=== PATIENT | male | born 1965 | race African-American/Black ===

== ENCOUNTER 2017-10-15 15:36 | Inpatient (IN) | payer OTHER ==
[2017-10-15 17:32] VITALS: BMI 32.2
--- NOTE | 2017-10-15 20:05 | HP ---
CIWA Score - CIWA Score Nausea/Vomitin Muscle Tremors: 4-Moderate,w/Arms Extend Anxiety: 3 Agitation: 4-Moderately Restless Paroxysmal Sweats: 1-Minimal Palms Moist Orientation: 1-Uncertain about Date (no distress) Tacttile Disturbances: 0-None Auditory Disturbances: 0-None Visual Disturbances: 1-Very Mild Sensitivity Headache: 0-None Present CIWA-Ar Total Score: 17 Admission ROS S - HPI Chief Complaint: " i don't feel good" alcohol withdrawal symptoms Allergies/Adverse Reactions: Allergies Allergy/AdvReac Type Severity Reaction Status Date / Time No Known Drug Allergies Allergy Verified 10/15/17 17:16 NKDA Allergy Uncoded 10/15/17 17:16 History of Present Illness: 52 yo male with of marijuana, crack /cocaine dependence is here seeking detox, c /o of withdrawal symptoms, reports relapsed three weeks ago. Last detox at [facility] seven months ago. PMHX: Spinal Stenosis, herniated disc, HTN ( non-compliant with meds). Denies suicidal / homicidal ideation. Denies any problems with law. Denies hx of seizures or blackouts. Longest period of sobriety five years. Exam Limitations: No Limitations - Ebola screening Have you traveled outside of the country in the last 21 days: No Have you had contact with anyone from an Ebola affected area: No Have you been sick,other than usual withdrawal symptoms: No Do you have a fever: No - Review of Systems Constitutional: Chills, Diaphoresis, Unintentional Wgt. Loss EENT: reports: No Symptoms Reported Respiratory: reports: No Symptoms reported Cardiac: reports: No Symptoms Reported GI: reports: Diarrhea, Nausea, Poor Appetite, Vomiting, Abdominal cramping : reports: No Symptoms Reported Musculoskeletal: reports: Back Pain, Joint Pain Integumentary: reports: No Symptoms Reported Neuro: reports: Dizziness Endocrine: reports: Excessive Sweating, Increased Thirst Hematology: reports: No Symptoms Reported Psychiatric: reports: Orientated x3, Anxious Other Systems: Reviewed and Negative Patient History - Patient Medical History Hx Anemia: No Hx Asthma: No Hx Chronic Obstructive Pulmonary Disease (COPD): No Hx Cardiac Disorders: No (CHEST PAIN 09/29/14--[facility]--CLEARED ANXIETY) Hx Hypertension: Yes (on meds) Hx Hypercholesterolemia: No Hx Pacemaker: No HX Cerebrovascular Accident: No Hx Seizures: No Hx Dementia: No Hx Diabetes: No Hx Gastrointestinal Disorders: No Hx Liver Disease: No Hx Genitourinary Disorders: No Hx Sexually Transmitted Disorders: No Hx Renal Disease (ESRD): No Hx Thyroid Disease: No Hx Human Immunodeficiency Virus (HIV): No (NEGATIVE HX) Hx Hepatitis C: No Hx Depression: Yes Hx Suicide Attempt: No (DENIES) Hx Bipolar Disorder: No Hx Schizophrenia: No - Patient Surgical History Past Surgical History: No Hx Neurologic Surgery: No Hx Cataract Extraction: No Hx Cardiac Surgery: No Hx Lung Surgery: No Hx Breast Surgery: No Hx Breast Biopsy: No Hx Abdominal Surgery: No Hx Appendectomy: No Hx Cholecystectomy: No Hx Genitourinary Surgery: No Hx Section: No Hx Orthopedic Surgery: No Anesthesia Reaction: No - PPD History Previous Implant?: Yes Documented Results: Negative w/proof Date: 10/02/14 PPD to be Administered?: Yes - Smoking Cessation Smoking history: Former smoker Have you smoked in the past 12 months: No If you are a former smoker, when did you quit?: 10yrs ago Hx Chewing Tobacco Use: No Initiated information on smoking cessation: No - Substance & Tx. History Hx Alcohol Use: Yes Hx Substance Use: Yes Substance Use Type: Alcohol, Cocaine Hx Substance Use Treatment: Yes (Last detox at [facility] seven months ago.) - Substances Abused Alcohol Route: Smoking Frequency: Daily Amount used: LIQUOR- 5 PINTS, BEER- 2 SIX PACK Age of first use: 19 Date of Last Use: 10/15/17 Crack Route: Smoking Frequency: Daily Amount used: $500 Age of first use: 20 Date of Last Use: 10/15/17 Family Disease History - Family Disease History Family Disease History: Diabetes: Mother (HTN), Sister, Other: Mother Admission Physical Exam S - Vital Signs Vital Signs: Vital Signs - 24 hr 10/15/17 16:53 Temperature 97.5 F L Pulse Rate 107 H Respiratory 20 Rate Blood Pressure 153/99 - Physical General Appearance: Yes: Disheveled, Mild Distress, Alcohol on Breath, Obese, Tremorous, Sweating, Anxious, Other (malodorous) HEENTM: Yes: EOMI, Hearing grossly Normal, Normal ENT Inspection, Normocephalic , Normal Voice, PRATIBHA, Pharynx Normal, Tm's normal Respiratory: Yes: Chest Non-Tender, Lungs Clear, Normal Breath Sounds, No Respiratory Distress, No Accessory Muscle Use Neck: Yes: Within Normal Limits Breast: Yes: Breast Exam Deferred Cardiology: Yes: Regular Rhythm, Regular Rate Abdominal: Yes: Normal Bowel Sounds, Non Tender, Soft, Protuberent Back: Yes: Normal Inspection Musculoskeletal: Yes: full range of Motion, Gait Steady, Pelvis Stable, Back pain Extremities: Yes: Normal Capillary Refill, Normal Inspection, Normal Range of Motion, Non-Tender Neurological: Yes: peanut roaster II-XII NML intact, Fully Oriented, Alert, Motor Strength 5/5, Depressed Affect Integumentary: Yes: Normal Color, Warm, Diaphoresis Lymphatic: Yes: Within Normal Limits - Diagnostic (1) Alcohol dependence with withdrawal Current Visit: Yes Status: Acute Qualifiers: Complication of substance-induced condition: uncomplicated Qualified Code(s ): F10.230 - Alcohol dependence with withdrawal, uncomplicated (2) Elevated blood pressure reading with diagnosis of hypertension Current Visit: Yes Status: Acute (3) Chronic back pain Current Visit: Yes Status: Chronic Qualifiers: Back pain location: thoracic back pain Back pain laterality: bilateral Qualified Code(s): M54.6 - Pain in thoracic spine; G89.29 - Other chronic pain (4) Cocaine dependence Current Visit: Yes Status: Acute Qualifiers: Substance use status: uncomplicated Qualified Code(s): F14.20 - Cocaine dependence, uncomplicated (5) Hypertension Current Visit: Yes Status: Chronic Qualifiers: Hypertension type: essential hypertension Qualified Code(s): I10 - Essential (primary) hypertension (6) Marijuana abuse Current Visit: Yes Status: Suspected (7) Obese Current Visit: Yes Status: Chronic Qualifiers: Obesity type: unspecified obesity type Obesity classification: adult class 1 (BMI 30 - 34.9) Serious obesity comorbidity presence: unspecified whether serious comorbidity present Cleared for Admission S - Detox or Rehab [facility] Level of Care: Medically Managed Detox Regimen/Protocol: Librium S Breath Alcohol Content Breath Alcohol Content: 0 Urine Drug Screen - Results Drug Screen Negative: No Urine Drug Screen Results: JESUS-Cocaine
[2017-10-15] MEDS ORDERED: cloNIDine HCL 0.1 MG TABLET PO ONE (20:08)
[2017-10-15] MEDS ORDERED: ONDANSETRON *ODT* 4 MG TABLET SL PRN (20:08)
[2017-10-15] MEDS ORDERED: LOPERAMIDE HCL 2 MG CAPSULE PO PRN (20:11)
[2017-10-15] MEDS ORDERED: ACETAMINOPHEN 325 MG TABLET (FP) PO PRN (20:11)
[2017-10-15] MEDS ORDERED: IBUPROFEN 400 MG TABLET (FP) PO PRN ×2 (20:11→20:33)
[2017-10-15] MEDS ORDERED: guaiFENesin/D-METHORPHAN HB 10 ML UNIT-DOSE CUPS PO PRN (20:11)
[2017-10-15] MEDS ORDERED: MAGNESIUM CITRATE 300 ML BOTTLE PO PRN (20:11)
[2017-10-15] MEDS ORDERED: MENTHOL/PHENOL 1 EACH UD MM PRN (20:11)
[2017-10-15] MEDS ORDERED: chlordiazePOXIDE HCL 25 MG CAPSULE PO ONE (20:11)
[2017-10-15] MEDS ORDERED: chlordiazePOXIDE HCL 25 MG CAPSULE PO PRN (20:11)
[2017-10-15] MEDS ORDERED: MAGNESIUM HYDROX 2400MG/30ML ORAL SUSPENSION 30 ML CUP PO PRN (20:11)
[2017-10-15] MEDS ORDERED: P-EPHED 60MG/TRIPROLIDI 2.5MG TABLET PO PRN (20:11)
[2017-10-15] MEDS ORDERED: MAG HYDROX/AL HYDROX/SIMETH 30 ML UNIT-DOSE CUP PO PRN (20:11)
[2017-10-15] MEDS: GABAPENTIN 300 MG CAPSULE (FP) PO SCH (21:00)
[2017-10-15] MEDS: THIAMINE HCL 100 MG TABLET (FP) PO SCH (21:00)
[2017-10-15] MEDS: CYCLOBENZAPRINE HCL 5 MG TABLET PO SCH (21:01)
[2017-10-15] MEDS ORDERED: MELATONIN 5 MG TABLETS PO PRN (22:00)
[2017-10-15] MEDS: LIDOCAINE PATCH REMOVAL MC SCH (22:21)
[2017-10-15] MEDS: chlordiazePOXIDE HCL 25 MG CAPSULE PO SCH (22:22)
[2017-10-15 23:26] LABS: URINE APPEARANCE CLEAR; URINE BILIRUBIN NEGATIVE (<2.0 mg/dL); URINE COLOR STRAW; URINE GLUCOSE (UA) NEGATIVE (NEGATIVE); URINE KETONE NEGATIVE (NEGATIVE); URINE LEUK ESTERASE NEGATIVE (NEGATIVE); URINE NITRITE NEGATIVE (NEGATIVE); URINE PROTEIN NEGATIVE (NEGATIVE); URINE UROBILINOGEN NEGATIVE mg/dL (0.2-1.0)
[2017-10-15 23:29] LABS: EPI CELLS RARE /HPF (FEW)
[2017-10-16] MEDS: chlordiazePOXIDE HCL 25 MG CAPSULE PO SCH ×4 (05:45→22:09)
[2017-10-16] MEDS: CYCLOBENZAPRINE HCL 5 MG TABLET PO SCH ×3 (05:45→22:09)
[2017-10-16] MEDS: GABAPENTIN 300 MG CAPSULE (FP) PO SCH ×3 (05:45→22:09)
[2017-10-16] MEDS ORDERED: PATIENT'S OWN MEDICATION (NON-FORMULARY) (Amlodipine Besylate/Benazepril [Lotrel 5-20 Mg C PO SCH (10:00)
[2017-10-16 10:20] LABS: HEMATOCRIT 38.3 % (35.4-49); HEMOGLOBIN 12.8 GM/dL (11.7-16.9); MCH 30.6 pg (25.7-33.7); MCHC 33.4 g/dl (32.0-35.9); MEAN CELL VOLUME 91.6 fl (80-96); PLATELET COUNT 291 K/MM3 (134-434); RBC 4.19 M/mm3 (4.00-5.60); RDW 12.2 % (11.9-15.9); WHITE BLOOD COUNT 7.4 K/mm3 (4.0-10.0)
[2017-10-16] MEDS: PRENATAL VITAMINS W/ FOLIC ACID TABLET (FP) PO SCH (10:25)
[2017-10-16] MEDS: HYDROCHLOROTHIAZIDE 25 MG TABLET (FP) PO SCH (10:25)
[2017-10-16] MEDS: LISINOPRIL 20 MG TABLET (FP) PO SCH (10:26)
[2017-10-16] MEDS: amLODIPine BESYLATE 5 MG TABLET (FP) PO SCH (10:26)
[2017-10-16] MEDS: LIDOCAINE 5% TOPICAL PATCH TP SCH (10:26)
[2017-10-16 11:37] LABS: CHLORIDE 106 mmol/L (98-107); POTASSIUM 3.8 mmol/L (3.5-5.1); SODIUM 143 mmol/L (136-145)
[2017-10-16 11:58] LABS: ALBUMIN 3.5 g/dl (3.4-5.0); ALK PHOS 83 U/L (45-117); ANION GAP 9 MMOL/L (8-16); BILIRUBIN,TOTAL 0.8 mg/dL (0.2-1.0); BLOOD UREA NITROGEN 22 mg/dL (7-18); CALCIUM 8.7 mg/dL (8.5-10.1); CO2 28 mmol/L (21-32); CREATININE 1.1 mg/dL (0.7-1.3); GLUCOSE,RANDOM 94 mg/dL (74-106); SGOT/AST 58 U/L (15-37); SGPT/ALT 54 U/L (12-78); TOT PROT 6.1 g/dl (6.4-8.2)
--- NOTE | 2017-10-16 13:40 | PN ---
S CIWA - CIWA Score Nausea/Vomitin-No Nausea/No Vomiting Muscle Tremors: 4-Moderate,w/Arms Extend Anxiety: 4-Mod. Anxious/Guarded Agitation: 4-Moderately Restless Paroxysmal Sweats: 1-Minimal Palms Moist Orientation: 0-Oriented Tacttile Disturbances: 0-None Auditory Disturbances: 0-None Visual Disturbances: 0-None Headache: 0-None Present CIWA-Ar Total Score: 13 BHS Progress Note (SOAP) Subjective: ANXIETY, SWEATS, BACK AND LEG PAIN-HX SPINAL STENOSIS. Objective: 10/16/17 13:40 Vital Signs 10/16/17 10/16/17 06:44 09:13 Temperature 98.1 F 96.6 F L Pulse Rate 85 87 Respiratory 18 16 Rate Blood Pressure 105/63 135/93 Laboratory Tests 10/15/17 10/16/17 10/16/17 23:08 07:00 07:00 WBC 7.4 RBC 4.19 Hgb 12.8 Hct 38.3 D MCV 91.6 MCH 30.6 MCHC 33.4 RDW 12.2 Plt Count 291 MPV 8.0 Sodium 143 Potassium 3.8 Chloride 106 Carbon Dioxide 28 Anion Gap 9 BUN 22 H Creatinine 1.1 Creat Clearance w eGFR > 60 Random Glucose 94 Calcium 8.7 Total Bilirubin 0.8 AST 58 H D ALT 54 D Alkaline Phosphatase 83 Total Protein 6.1 L Albumin 3.5 Urine Color Straw Urine Appearance Clear Urine pH 6.0 Ur Specific [place] 1.004 Urine Protein Negative Urine Glucose (UA) Negative Urine Ketones Negative Urine Blood 2+ H Urine Nitrite Negative Urine Bilirubin Negative Urine Urobilinogen Negative Ur Leukocyte Esterase Negative Urine WBC (Auto) None Urine RBC (Auto) <1 Ur Epithelial Cells Rare Assessment: 10/16/17 13:40 WITHDRAWAL SX Plan: CONTINUE DETOX LIDOCAINE PATCH DIRECTED.
--- NOTE | 2017-10-16 16:26 | CONSULT ---
[facility] Psychiatric Consult - Data Date of interview: 10/16/17 Admission source: [facility] Identifying data: Readmission to [facility] for this 52 y/o AA male self- referred for detoxification treatment (alcohol,crack/cocaine).Admitted to [address] [place] [address].Patient is ,a father of six,homeless,unemployed and deprived of income. Substance Abuse History: Confirmed by patient in this interview.Details in current [facility] report as follows : Smoking history: Former smoker. Have you smoked in the past 12 months: No. If you are a former smoker, when did you quit ?: 10yrs ago. Hx Chewing Tobacco Use: No. Initiated information on smoking cessation: No. - Substance & Tx. History. Hx Alcohol Use: Yes. Hx Substance Use: Yes. Substance Use Type: Alcohol, Cocaine. Hx Substance Use Treatment: Yes (Last detox at [facility] seven months ago.). - Substances Abused. Alcohol. Route: Smoking. Frequency: Daily. Amount used: LIQUOR- 5 PINTS, BEER- 2 SIX PACK. Age of first use: 19. Date of Last Use: 10/15/17. Crack. Route: Smoking. Frequency: Daily. Amount used: $500. Age of first use: 20. Date of Last Use: 10/15/17 Medical History: History of spinal fusion,hypertension,spinal stenosis and chronic lumbar pain. Psychiatric History: Patient denies. Physical/Sexual Abuse/Trauma History: No reported history of abuse. Additional Comment: Urine Drug Screen Results: JESUS-Cocaine.Noted. Mental Status Exam - Mental Status Exam Alert and Oriented to: Time, Place, Person Cognitive Function: Good Patient Appearance: Well Groomed (short stature,overweight) Mood: Nervous, Withdrawn, Apprehensive Affect: Mood Congruent Patient Behavior: Fatigued, Appropriate, Cooperative Speech Pattern: Clear Voice Loudness: Normal Thought Process: Intact, Goal Oriented Thought Disorder: Not Present Hallucinations: Denies Suicidal Ideation: Denies Homicidal Ideation: Denies Insight/Judgement: Fair Sleep: Poorly, Difficulty falling asleep Appetite: Good Muscle strength/Tone: Normal Gait/Station: Normal Psychiatric Findings - Problem List ([place] 1, 2,3) (1) Alcohol dependence with withdrawal Current Visit: Yes Status: Acute Qualifiers: Complication of substance-induced condition: uncomplicated Qualified Code(s ): F10.230 - Alcohol dependence with withdrawal, uncomplicated (2) Cocaine dependence Current Visit: Yes Status: Acute Qualifiers: Substance use status: uncomplicated Qualified Code(s): F14.20 - Cocaine dependence, uncomplicated (3) Insomnia Current Visit: Yes Status: Acute - Initial Treatment Plan Initial Treatment Plan: Psychoeducation.Sleep hygiene.Detoxification in progress.Support.AA meetings.Ambien 5 mg po hs prn.Patient is made aware of the risk of parasomnias.Agrees to careplan.Observation.
--- NOTE | 2017-10-16 17:22 | EKG ---
Test Reason : Blood Pressure : / mmHG Vent. Rate : 096 BPM Atrial Rate : 096 BPM P-R Int : 142 ms QRS Dur : 074 ms QT Int : 356 ms P-R-T Axes : 069 019 058 degrees QTc Int : 449 ms NORMAL SINUS RHYTHM NORMAL ECG NO PREVIOUS ECGS AVAILABLE Confirmed by MD KRAIG, RONEY ([id number]) on 10/16/2017 5:22:03 PM Referred By: Confirmed By:RONEY CORNELL MD
[2017-10-16] MEDS: THIAMINE HCL 100 MG TABLET (FP) PO SCH (22:09)
[2017-10-16] MEDS: ZOLPIDEM TARTRATE 5 MG TABLET PO PRN (22:09)
[2017-10-16] MEDS: LIDOCAINE PATCH REMOVAL MC SCH (22:10)
[2017-10-17] MEDS: CYCLOBENZAPRINE HCL 5 MG TABLET PO SCH ×3 (05:36→22:07)
[2017-10-17] MEDS: GABAPENTIN 300 MG CAPSULE (FP) PO SCH ×3 (05:36→22:07)
[2017-10-17] MEDS: chlordiazePOXIDE HCL 25 MG CAPSULE PO SCH ×3 (05:37→16:50)
[2017-10-17] MEDS: LIDOCAINE 5% TOPICAL PATCH TP SCH (10:16)
[2017-10-17] MEDS: PRENATAL VITAMINS W/ FOLIC ACID TABLET (FP) PO SCH (10:16)
[2017-10-17] MEDS: amLODIPine BESYLATE 5 MG TABLET (FP) PO SCH (10:18)
[2017-10-17] MEDS: LISINOPRIL 20 MG TABLET (FP) PO SCH (10:18)
[2017-10-17] MEDS: HYDROCHLOROTHIAZIDE 25 MG TABLET (FP) PO SCH (10:19)
[2017-10-17] MEDS: IBUPROFEN 600 MG TABLET (FP) PO PRN ×2 (10:41→22:23)
--- NOTE | 2017-10-17 15:20 | PN ---
S CIWA - CIWA Score Nausea/Vomitin-No Nausea/No Vomiting Muscle Tremors: 4-Moderate,w/Arms Extend Anxiety: 4-Mod. Anxious/Guarded Agitation: 3 Paroxysmal Sweats: 1-Minimal Palms Moist Orientation: 0-Oriented Tacttile Disturbances: 0-None Auditory Disturbances: 0-None Visual Disturbances: 0-None Headache: 0-None Present CIWA-Ar Total Score: 12 BHS Progress Note (SOAP) Subjective: C/O ANXIETY, CHRONIC LEG AND BACK PAIN, FATIGUE. Objective: 10/17/17 15:20 Vital Signs 10/17/17 10/17/17 09:14 13:21 Temperature 98.1 F Pulse Rate 89 103 H Respiratory 18 20 Rate Blood Pressure 95/61 123/85 Laboratory Tests 10/15/17 10/16/17 10/16/17 23:08 07:00 07:00 WBC 7.4 RBC 4.19 Hgb 12.8 Hct 38.3 D MCV 91.6 MCH 30.6 MCHC 33.4 RDW 12.2 Plt Count 291 MPV 8.0 Sodium 143 Potassium 3.8 Chloride 106 Carbon Dioxide 28 Anion Gap 9 BUN 22 H Creatinine 1.1 Creat Clearance w eGFR > 60 Random Glucose 94 Calcium 8.7 Total Bilirubin 0.8 AST 58 H D ALT 54 D Alkaline Phosphatase 83 Total Protein 6.1 L Albumin 3.5 Urine Color Straw Urine Appearance Clear Urine pH 6.0 Ur Specific [place] 1.004 Urine Protein Negative Urine Glucose (UA) Negative Urine Ketones Negative Urine Blood 2+ H Urine Nitrite Negative Urine Bilirubin Negative Urine Urobilinogen Negative Ur Leukocyte Esterase Negative Urine WBC (Auto) None Urine RBC (Auto) <1 Ur Epithelial Cells Rare RPR Titer 10/16/17 07:00 WBC RBC Hgb Hct MCV MCH MCHC RDW Plt Count MPV Sodium Potassium Chloride Carbon Dioxide Anion Gap BUN Creatinine Creat Clearance w eGFR Random Glucose Calcium Total Bilirubin AST ALT Alkaline Phosphatase Total Protein Albumin Urine Color Urine Appearance Urine pH Ur Specific [place] Urine Protein Urine Glucose (UA) Urine Ketones Urine Blood Urine Nitrite Urine Bilirubin Urine Urobilinogen Ur Leukocyte Esterase Urine WBC (Auto) Urine RBC (Auto) Ur Epithelial Cells RPR Titer Nonreactive Assessment: 10/17/17 15:20 WITHDRAWAL SX Plan: CONTINUE DETOX
[2017-10-17] MEDS: THIAMINE HCL 100 MG TABLET (FP) PO SCH (22:07)
[2017-10-17] MEDS: ZOLPIDEM TARTRATE 5 MG TABLET PO PRN (22:07)
[2017-10-17] MEDS: LIDOCAINE PATCH REMOVAL MC SCH (22:07)
[2017-10-17] MEDS: chlordiazePOXIDE 5 MG CAPSULE PO SCH (22:07)
[2017-10-18] MEDS: chlordiazePOXIDE 5 MG CAPSULE PO SCH ×3 (05:38→17:33)
[2017-10-18] MEDS: GABAPENTIN 300 MG CAPSULE (FP) PO SCH ×3 (05:38→22:21)
[2017-10-18] MEDS: CYCLOBENZAPRINE HCL 5 MG TABLET PO SCH ×3 (05:38→22:20)
[2017-10-18] MEDS: IBUPROFEN 600 MG TABLET (FP) PO PRN ×4 (05:39→22:22)
[2017-10-18] MEDS: LIDOCAINE 5% TOPICAL PATCH TP SCH (10:12)
[2017-10-18] MEDS: PRENATAL VITAMINS W/ FOLIC ACID TABLET (FP) PO SCH (10:12)
[2017-10-18] MEDS: LISINOPRIL 20 MG TABLET (FP) PO SCH (10:12)
[2017-10-18] MEDS: amLODIPine BESYLATE 5 MG TABLET (FP) PO SCH (10:12)
[2017-10-18] MEDS: HYDROCHLOROTHIAZIDE 25 MG TABLET (FP) PO SCH (10:12)
--- NOTE | 2017-10-18 15:36 | PN ---
S CIWA - CIWA Score Nausea/Vomitin-No Nausea/No Vomiting Muscle Tremors: None Anxiety: 0-No Anxiety, at Ease Agitation: 0-Normal Activity Paroxysmal Sweats: No Perspiration Orientation: 0-Oriented Tacttile Disturbances: 3-Moderate Itch/Numb/Burn Auditory Disturbances: 0-None Visual Disturbances: 0-None Headache: 0-None Present CIWA-Ar Total Score: 3 BHS Progress Note (SOAP) Subjective: PATIENT STATES HE HAS NUMBNESS AND [place]INGLING TO FEET DUE TO HX OF SPINAL STENOSIS. Objective: 10/18/17 15:34 Vital Signs Temperature 97.2 F L 10/18/17 13:53 Pulse Rate 95 H 10/18/17 13:53 Respiratory Rate 16 10/18/17 13:53 Blood Pressure 143/94 10/18/17 13:53 O2 Sat by Pulse Oximetry (%) Laboratory Tests 10/15/17 10/16/17 10/16/17 23:08 07:00 07:00 WBC 7.4 RBC 4.19 Hgb 12.8 Hct 38.3 D MCV 91.6 MCH 30.6 MCHC 33.4 RDW 12.2 Plt Count 291 MPV 8.0 Sodium 143 Potassium 3.8 Chloride 106 Carbon Dioxide 28 Anion Gap 9 BUN 22 H Creatinine 1.1 Creat Clearance w eGFR > 60 Random Glucose 94 Calcium 8.7 Total Bilirubin 0.8 AST 58 H D ALT 54 D Alkaline Phosphatase 83 Total Protein 6.1 L Albumin 3.5 Urine Color Straw Urine Appearance Clear Urine pH 6.0 Ur Specific [place] 1.004 Urine Protein Negative Urine Glucose (UA) Negative Urine Ketones Negative Urine Blood 2+ H Urine Nitrite Negative Urine Bilirubin Negative Urine Urobilinogen Negative Ur Leukocyte Esterase Negative Urine WBC (Auto) None Urine RBC (Auto) <1 Ur Epithelial Cells Rare RPR Titer 10/16/17 07:00 WBC RBC Hgb Hct MCV MCH MCHC RDW Plt Count MPV Sodium Potassium Chloride Carbon Dioxide Anion Gap BUN Creatinine Creat Clearance w eGFR Random Glucose Calcium Total Bilirubin AST ALT Alkaline Phosphatase Total Protein Albumin Urine Color Urine Appearance Urine pH Ur Specific [place] Urine Protein Urine Glucose (UA) Urine Ketones Urine Blood Urine Nitrite Urine Bilirubin Urine Urobilinogen Ur Leukocyte Esterase Urine WBC (Auto) Urine RBC (Auto) Ur Epithelial Cells RPR Titer Nonreactive SKIN WARM AND DRY CAR S1S2 RESP CTA BL Assessment: 10/18/17 15:34 WITHDRAWAL SYNDROME PERIPHERAL NEUROPATHY Plan: CONTINUE DETOX PER PROTOCOL ENCOURAGE ORAL HYDRATION CONTINUE TO MONITOR CLINICALLY
[2017-10-18] MEDS: LIDOCAINE PATCH REMOVAL MC SCH (22:21)
[2017-10-18] MEDS: THIAMINE HCL 100 MG TABLET (FP) PO SCH (22:21)
[2017-10-18] MEDS: chlordiazePOXIDE HCL 10 MG CAPSULE PO SCH (22:51)
[2017-10-19] MEDS: CYCLOBENZAPRINE HCL 5 MG TABLET PO SCH (05:21)
[2017-10-19] MEDS: GABAPENTIN 300 MG CAPSULE (FP) PO SCH (05:22)
[2017-10-19 06:22] VITALS: BP 100/65; PULSE 76; TEMP 96.9
[2017-10-19] MEDS: chlordiazePOXIDE HCL 10 MG CAPSULE PO SCH (06:40)
== END 2017-10-19 09:05 | disposition home or self-care (01) | DRG 774 ==
LOC: YASAS 15:36 → Y3N 19:24
PROC: HZ2ZZZZ Detoxification Services for Substance Abuse Treatment (ICD-10-PCS; principal; 2017-10-15)
DX: F10.230 Alcohol dependence with withdrawal, uncomplicated (principal); F14.20 Cocaine dependence, uncomplicated; F12.10 Cannabis abuse, uncomplicated; G47.00 Insomnia, unspecified; I10 Essential (primary) hypertension; M54.6 Pain in thoracic spine; M54.5 Low back pain; G89.29 Other chronic pain; E66.9 Obesity, unspecified; Z68.32 Body mass index [BMI] 32.0-32.9, adult; M48.00 Spinal stenosis, site unspecified
CPT/HCPCS: 36415; 80053; 81003; 81015; 85027; 86593; 93005; 93010; J0735